=== PATIENT | male | born 1935 | race Caucasian/White ===

== ENCOUNTER 2016-09-30 11:07 | Outpatient (CLI) | payer MEDICARE, BC | END 2016-09-30 11:08 | disposition home or self-care (01) | DX: Z79.01 Long term (current) use of anticoagulants (principal) ==

== ENCOUNTER 2016-10-17 10:54 | Outpatient (CLI) | payer MEDICARE, BC | END 2016-10-17 10:55 | disposition home or self-care (01) | DX: Z79.01 Long term (current) use of anticoagulants (principal) ==

== ENCOUNTER 2016-11-12 11:03 | Outpatient (CLI) | payer MEDICARE, BC | END 2016-11-12 11:04 | disposition home or self-care (01) | DX: Z79.01 Long term (current) use of anticoagulants (principal) ==

== ENCOUNTER 2016-12-02 10:48 | Outpatient (CLI) | payer MEDICARE, BC | END 2016-12-02 10:49 | disposition home or self-care (01) | DX: Z79.01 Long term (current) use of anticoagulants (principal) ==

== ENCOUNTER 2016-12-31 12:39 | Outpatient (CLI) | payer MEDICARE, BC | END 2016-12-31 12:40 | disposition home or self-care (01) | DX: Z79.01 Long term (current) use of anticoagulants (principal) ==

== ENCOUNTER 2017-01-28 09:38 | Outpatient (CLI) | payer MEDICARE, BC | END 2017-01-28 09:39 | disposition home or self-care (01) | DX: Z79.01 Long term (current) use of anticoagulants (principal) ==

== ENCOUNTER 2017-02-05 08:00 | Outpatient (CLI) | payer MEDICARE, BC | END 2017-02-05 08:01 | disposition home or self-care (01) | DX: Z79.01 Long term (current) use of anticoagulants (principal) ==

== ENCOUNTER 2017-02-11 08:49 | Outpatient (CLI) | payer MEDICARE, BC | END 2017-02-11 08:50 | disposition home or self-care (01) | DX: E78.5 Hyperlipidemia, unspecified (principal); E55.9 Vitamin D deficiency, unspecified; Z12.5 Encounter for screening for malignant neoplasm of prostate; Z51.81 Encounter for therapeutic drug level monitoring; Z85.46 Personal history of malignant neoplasm of prostate | CPT/HCPCS: 36415; 80053; 80061; 82306; 85025; G0103 ==

== ENCOUNTER 2017-03-09 13:10 | Outpatient (CLI) | payer MEDICARE, BC | END 2017-03-09 13:11 | disposition home or self-care (01) | LOC: LAB.F 13:10 | PROVIDERS: ATTEND Physician Assistant Medical | DX: Z79.01 Long term (current) use of anticoagulants (principal) | CPT/HCPCS: 85610 ==

== ENCOUNTER 2017-04-03 15:11 | Outpatient (CLI) | payer MEDICARE, BC | END 2017-04-03 15:12 | disposition home or self-care (01) | LOC: LAB.F 15:11 | PROVIDERS: ATTEND Physician Assistant Medical | DX: Z79.01 Long term (current) use of anticoagulants (principal) | CPT/HCPCS: 85610 ==

== ENCOUNTER 2017-05-01 11:26 | Outpatient (CLI) | payer MEDICARE, BC | END 2017-05-01 11:27 | disposition home or self-care (01) | LOC: LAB.F 11:26 | PROVIDERS: ATTEND Physician Assistant Medical | DX: Z79.01 Long term (current) use of anticoagulants (principal) | CPT/HCPCS: 85610 ==

== ENCOUNTER 2017-05-29 10:19 | Outpatient (CLI) | payer MEDICARE, BC | END 2017-05-29 10:20 | disposition home or self-care (01) | LOC: LAB.F 10:19 | PROVIDERS: ATTEND Physician Assistant Medical | DX: Z79.01 Long term (current) use of anticoagulants (principal) | CPT/HCPCS: 85610 ==

== ENCOUNTER 2017-06-25 14:29 | Outpatient (CLI) | payer MEDICARE, BC | END 2017-06-25 14:30 | disposition home or self-care (01) | LOC: LAB.F 14:29 | PROVIDERS: ATTEND Physician Assistant Medical | DX: Z79.01 Long term (current) use of anticoagulants (principal) | CPT/HCPCS: 85610 ==

== ENCOUNTER 2017-07-27 13:47 | Outpatient (CLI) | payer MEDICARE, BC | END 2017-07-27 13:48 | disposition home or self-care (01) | LOC: LAB.F 13:47 | PROVIDERS: ATTEND Physician Assistant Medical | DX: Z79.01 Long term (current) use of anticoagulants (principal) | CPT/HCPCS: 85610 ==

== ENCOUNTER 2017-08-21 14:25 | Outpatient (CLI) | payer MEDICARE, BC | END 2017-08-21 14:26 | disposition home or self-care (01) | LOC: LAB.F 14:25 | PROVIDERS: ATTEND Physician Assistant Medical | DX: Z79.01 Long term (current) use of anticoagulants (principal) | CPT/HCPCS: 85610 ==

== ENCOUNTER 2017-08-27 19:50 | Outpatient (CLI) | payer MEDICARE, BC ==
--- NOTE | 2017-08-27 20:59 | Ultrasound Preliminary Report ---
Exam: US DUPLEX EXT VEINS LEFT IMPRESSION: 1. No evidence of acute deep venous thrombosis. 2. 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 3. There are thrombosed superficial veins within the calf. [facility] SITE ID: [id number]
--- NOTE | 2017-08-27 21:02 | Ultrasound Report ---
EXAM: LEFT LOWER EXTREMITY VENOUS ULTRASOUND EXAM DATE: 08/27/2017 08:07 PM. CLINICAL HISTORY: Lower extremity swelling COMPARISON: None. TECHNIQUE: Real-time sonographic vascular imaging was performed by the television cameraman through the lower extremity utilizing both color-flow and Doppler spectral analysis. Multiple sales development representative static romeo ges were saved for review. FINDINGS: Common Femoral Vein (CFV): Normal. CFV-GSV Junction: Normal. Profunda Femoral Vein (PFV): Normal. Femoral Vein (FV) Prox: Normal. Femoral Vein (FV) Mid: There may be some chronic nonocclusive thrombus within the mid femoral vein. Femoral Vein (FV) Dist: Normal. Popliteal Vein: Normal. Posterior Tibial Veins: Normal. Peroneal Veins: Normal. Contralateral Side CFV: Normal. Other: There are thrombosed superficial subcutaneous veins within the calf. IMPRESSION: 1. No evidence of acute deep venous thrombosis. 2. 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 3. There are thrombosed superficial veins within the calf. [facility] Referring Provider Line: [phone] SITE ID: [id number]
== END 2017-08-27 19:51 | disposition home or self-care (01) ==
LOC: DI 19:50
PROVIDERS: ATTEND Family Medicine
DX: I82.812 Embolism and thrombosis of superficial veins of left lower extremity (principal)

== ENCOUNTER 2017-09-03 11:21 | Outpatient (CLI) | payer MEDICARE, BC | END 2017-09-03 11:22 | disposition home or self-care (01) | LOC: LAB.F 11:21 | PROVIDERS: ATTEND Physician Assistant Medical | DX: Z79.01 Long term (current) use of anticoagulants (principal) | CPT/HCPCS: 85610 ==

== ENCOUNTER 2017-09-17 08:00 | Outpatient (CLI) | payer MEDICARE, BC | END 2017-09-17 08:01 | disposition home or self-care (01) | LOC: LAB.F 08:00 | PROVIDERS: ATTEND Physician Assistant Medical | DX: Z79.01 Long term (current) use of anticoagulants (principal) | CPT/HCPCS: 85610 ==

== ENCOUNTER 2017-10-01 09:07 | Outpatient (CLI) | payer MEDICARE, BC | END 2017-10-01 09:08 | disposition home or self-care (01) | LOC: LAB.F 09:07 | PROVIDERS: ATTEND Physician Assistant Medical | DX: Z79.01 Long term (current) use of anticoagulants (principal); I82.90 Acute embolism and thrombosis of unspecified vein | CPT/HCPCS: 85610 ==

== ENCOUNTER 2017-10-15 08:42 | Outpatient (CLI) | payer MEDICARE, BC | END 2017-10-15 08:43 | disposition home or self-care (01) | LOC: LAB.F 08:42 | PROVIDERS: ATTEND Physician Assistant Medical | DX: Z53.9 Procedure and treatment not carried out, unspecified reason (principal) ==

== ENCOUNTER 2017-10-15 08:45 | Outpatient (CLI) | payer MEDICARE, BC | END 2017-10-15 08:46 | disposition home or self-care (01) | LOC: LAB.F 08:45 | PROVIDERS: ATTEND Physician Assistant Medical | DX: Z79.01 Long term (current) use of anticoagulants (principal); I82.90 Acute embolism and thrombosis of unspecified vein | CPT/HCPCS: 85610 ==

== ENCOUNTER 2017-11-12 13:29 | Outpatient (CLI) | payer MEDICARE, BC | END 2017-11-12 13:30 | disposition home or self-care (01) | LOC: LAB.F 13:29 | PROVIDERS: ATTEND Physician Assistant Medical | DX: I82.90 Acute embolism and thrombosis of unspecified vein (principal); Z79.01 Long term (current) use of anticoagulants | CPT/HCPCS: 85610 ==

== ENCOUNTER 2017-12-10 11:17 | Outpatient (CLI) | payer MEDICARE, BC | END 2017-12-10 11:18 | disposition home or self-care (01) | LOC: LAB.F 11:17 | PROVIDERS: ATTEND Physician Assistant Medical | DX: Z79.01 Long term (current) use of anticoagulants (principal); I82.90 Acute embolism and thrombosis of unspecified vein | CPT/HCPCS: 85610 ==

== ENCOUNTER 2017-12-17 10:23 | Outpatient (CLI) | payer MEDICARE, BC | END 2017-12-17 10:24 | disposition home or self-care (01) | LOC: LAB.F 10:23 | PROVIDERS: ATTEND Physician Assistant Medical | DX: Z79.01 Long term (current) use of anticoagulants (principal); I82.90 Acute embolism and thrombosis of unspecified vein | CPT/HCPCS: 85610 ==

== ENCOUNTER 2017-12-25 09:29 | Outpatient (CLI) | payer MEDICARE, BC | END 2017-12-25 09:30 | disposition home or self-care (01) | LOC: LAB.F 09:29 | PROVIDERS: ATTEND Physician Assistant Medical | DX: Z79.01 Long term (current) use of anticoagulants (principal); I82.90 Acute embolism and thrombosis of unspecified vein | CPT/HCPCS: 85610 ==

== ENCOUNTER 2018-01-01 08:59 | Outpatient (CLI) | payer MEDICARE, BC | END 2018-01-01 09:00 | disposition home or self-care (01) | LOC: LAB.F 08:59 | PROVIDERS: ATTEND Physician Assistant Medical | DX: Z79.01 Long term (current) use of anticoagulants (principal); I82.90 Acute embolism and thrombosis of unspecified vein | CPT/HCPCS: 85610 ==

== ENCOUNTER 2018-01-15 09:33 | Outpatient (CLI) | payer MEDICARE, BC | END 2018-01-15 09:34 | disposition home or self-care (01) | LOC: LAB.F 09:33 | PROVIDERS: ATTEND Physician Assistant Medical | DX: Z79.01 Long term (current) use of anticoagulants (principal); I82.90 Acute embolism and thrombosis of unspecified vein | CPT/HCPCS: 85610 ==

== ENCOUNTER 2018-02-04 10:41 | Outpatient (CLI) | payer MEDICARE, BC ==
[2018-02-04 17:51] LABS: BASOPHILS % (AUTO) 0.4 %; EOSINOPHILS # (AUTO) 0.1 10^3/uL (0.0-0.7); EOSINOPHILS % (AUTO) 1.1 %; HGB - HEMOGLOBIN 14.5 g/dL (14.0-18.0); LYMPHOCYTES # (AUTO) 1.1 10^3/uL (1.5-3.5); LYMPHOCYTES % (AUTO) 22.3 %; MEAN CORPUSCULAR HEMOGLOBIN 31.3 pg (27.0-31.0); MEAN CORPUSCULAR HGB CONC 32.8 g/dL (32.0-36.0); MEAN CORPUSCULAR VOLUME 95.3 fL (80.0-94.0); MEAN PLATELET VOLUME 9.5 fL (7.4-11.4); MONOCYTES # (AUTO) 0.3 10^3/uL (0.0-1.0); MONOCYTES % (AUTO) 6.8 %; NEUTROPHILS # (AUTO) 3.5 10^3/uL (1.5-6.6); NEUTROPHILS % (AUTO) 69.4 %; PLT - PLATELET COUNT 227 10^3/uL (130-450); RED BLOOD COUNT 4.63 10^6/uL (4.70-6.10); RED CELL DISTRIBUTION WIDTH 14.4 % (12.0-15.0); WHITE BLOOD COUNT 5.1 x10^3/uL (4.8-10.8)
[2018-02-04 18:27] LABS: ALBUMIN 3.9 g/dL (3.2-5.5); ALBUMIN/GLOBULIN RATIO 1.4 (1.0-2.2); ALKALINE PHOSPHATASE 56 IU/L (42-121); ALT ALANINE AMINOTRANSFERASE 22 IU/L (10-60); AST ASPARTATE AMINOTRANSFERASE 29 IU/L (10-42); BILIRUBIN,TOTAL 1.2 mg/dL (0.2-1.0); BUN - BLOOD UREA NITROGEN 20 mg/dL (6-20); CALCIUM 8.9 mg/dL (8.5-10.3); CARBON DIOXIDE - CO2 29 mmol/L (21-32); CHLORIDE 104 mmol/L (101-111); CHOL/HDL RATIO 2.2 (<5.0); CHOLESTEROL 144 mg/dL; CREATININE 0.9 mg/dL (0.6-1.2); GFR - MDRD 81 (>89); GLUCOSE 103 mg/dL (70-100); HDL CHOLESTEROL 65 mg/dL; SODIUM 139 mmol/L (135-145); TOTAL PROTEIN 6.7 g/dL (6.7-8.2)
[2018-02-04 18:47] LABS: LDL CHOLESTEROL,DIRECT 59 mg/dL; LDLD/HDL RATIO 0.9 (<3.6)
== END 2018-02-04 10:42 | disposition home or self-care (01) ==
LOC: LAB.F 10:41
PROVIDERS: ATTEND Physician Assistant Medical
DX: I10 Essential (primary) hypertension (principal); E78.5 Hyperlipidemia, unspecified; E55.9 Vitamin D deficiency, unspecified; Z85.46 Personal history of malignant neoplasm of prostate; Z79.01 Long term (current) use of anticoagulants
CPT/HCPCS: 36415; 80053; 80061; 82306; 83721; 84153; 85025

== ENCOUNTER 2018-02-11 11:22 | Outpatient (CLI) | payer MEDICARE, BC | END 2018-02-11 11:23 | disposition home or self-care (01) | LOC: LAB.F 11:22 | PROVIDERS: ATTEND Family Medicine | DX: Z79.01 Long term (current) use of anticoagulants (principal); I82.90 Acute embolism and thrombosis of unspecified vein | CPT/HCPCS: 85610 ==

== ENCOUNTER 2018-03-11 10:06 | Outpatient (CLI) | payer MEDICARE, BC | END 2018-03-11 10:07 | disposition home or self-care (01) | LOC: LAB.F 10:06 | PROVIDERS: ATTEND Physician Assistant Medical | DX: I82.90 Acute embolism and thrombosis of unspecified vein (principal); Z79.01 Long term (current) use of anticoagulants | CPT/HCPCS: 85610 ==

== ENCOUNTER 2018-04-08 09:10 | Outpatient (CLI) | payer MEDICARE, BC | END 2018-04-08 09:11 | disposition home or self-care (01) | LOC: LAB.F 09:10 | PROVIDERS: ATTEND Physician Assistant Medical | DX: Z79.01 Long term (current) use of anticoagulants (principal); I82.90 Acute embolism and thrombosis of unspecified vein | CPT/HCPCS: 85610 ==

== ENCOUNTER 2018-05-06 15:21 | Outpatient (CLI) | payer MEDICARE, BC | END 2018-05-06 15:22 | disposition home or self-care (01) | LOC: LAB.F 15:21 | PROVIDERS: ATTEND Physician Assistant Medical | DX: Z79.01 Long term (current) use of anticoagulants (principal); I82.90 Acute embolism and thrombosis of unspecified vein | CPT/HCPCS: 85610 ==

== ENCOUNTER 2018-05-13 10:00 | Outpatient (CLI) | payer MEDICARE, BC | END 2018-05-13 10:01 | disposition home or self-care (01) | LOC: LAB.F 10:00 | PROVIDERS: ATTEND Physician Assistant Medical | DX: Z79.01 Long term (current) use of anticoagulants (principal); I82.90 Acute embolism and thrombosis of unspecified vein | CPT/HCPCS: 85610 ==

== ENCOUNTER 2018-05-28 11:12 | Outpatient (CLI) | payer MEDICARE, BC | END 2018-05-28 11:13 | disposition home or self-care (01) | LOC: LAB.F 11:12 | PROVIDERS: ATTEND Physician Assistant Medical | DX: Z79.01 Long term (current) use of anticoagulants (principal); I82.90 Acute embolism and thrombosis of unspecified vein | CPT/HCPCS: 85610 ==

== ENCOUNTER 2018-06-28 07:58 | Outpatient (CLI) | payer MEDICARE, BC | END 2018-06-28 07:59 | disposition home or self-care (01) | LOC: LAB.F 07:58 | PROVIDERS: ATTEND Physician Assistant Medical | DX: Z79.01 Long term (current) use of anticoagulants (principal); I82.90 Acute embolism and thrombosis of unspecified vein | CPT/HCPCS: 85610 ==

== ENCOUNTER 2018-07-05 08:00 | Outpatient (CLI) | payer MEDICARE, BC | END 2018-07-05 08:01 | disposition home or self-care (01) | LOC: LAB.F 08:00 | PROVIDERS: ATTEND Physician Assistant Medical | DX: Z79.01 Long term (current) use of anticoagulants (principal); I82.90 Acute embolism and thrombosis of unspecified vein | CPT/HCPCS: 85610 ==

== ENCOUNTER 2018-07-22 09:15 | Outpatient (CLI) | payer MEDICARE, BC | END 2018-07-22 09:16 | disposition home or self-care (01) | LOC: LAB.F 09:15 | PROVIDERS: ATTEND Physician Assistant Medical | DX: Z79.01 Long term (current) use of anticoagulants (principal); I82.90 Acute embolism and thrombosis of unspecified vein | CPT/HCPCS: 85610 ==

== ENCOUNTER 2018-08-23 08:57 | Outpatient (CLI) | payer MEDICARE, BC | END 2018-08-23 08:58 | disposition home or self-care (01) | LOC: LAB.F 08:57 | PROVIDERS: ATTEND Physician Assistant Medical | DX: Z79.01 Long term (current) use of anticoagulants (principal); I82.90 Acute embolism and thrombosis of unspecified vein | CPT/HCPCS: 85610 ==

== ENCOUNTER 2018-09-22 12:51 | Outpatient (CLI) | payer MEDICARE, BC | END 2018-09-22 12:52 | disposition home or self-care (01) | LOC: LAB.F 12:51 | PROVIDERS: ATTEND Registered Nurse | DX: Z79.01 Long term (current) use of anticoagulants (principal) | CPT/HCPCS: 85610 ==

== ENCOUNTER 2018-10-21 10:02 | Outpatient (CLI) | payer MEDICARE, BC | END 2018-10-21 10:03 | disposition home or self-care (01) | LOC: LAB.F 10:02 | PROVIDERS: ATTEND Registered Nurse | DX: Z79.01 Long term (current) use of anticoagulants (principal) | CPT/HCPCS: 85610 ==

== ENCOUNTER 2018-11-18 10:09 | Outpatient (CLI) | payer MEDICARE, BC | END 2018-11-18 10:10 | disposition home or self-care (01) | LOC: LAB.F 10:09 | PROVIDERS: ATTEND Registered Nurse | DX: Z79.01 Long term (current) use of anticoagulants (principal) | CPT/HCPCS: 85610 ==

== ENCOUNTER 2018-12-07 09:53 | Outpatient (CLI) | payer MEDICARE, BC ==
[2018-12-07 17:45] LABS: BASOPHILS % (AUTO) 0.4 %; EOSINOPHILS # (AUTO) 0.1 10^3/uL (0.0-0.7); EOSINOPHILS % (AUTO) 1.1 %; HGB - HEMOGLOBIN 14.9 g/dL (14.0-18.0); LYMPHOCYTES # (AUTO) 1.3 10^3/uL (1.5-3.5); LYMPHOCYTES % (AUTO) 22.4 %; MEAN CORPUSCULAR HEMOGLOBIN 31.6 pg (27.0-31.0); MEAN CORPUSCULAR HGB CONC 32.8 g/dL (32.0-36.0); MEAN CORPUSCULAR VOLUME 96.4 fL (80.0-94.0); MEAN PLATELET VOLUME 8.8 fL (7.4-11.4); MONOCYTES # (AUTO) 0.4 10^3/uL (0.0-1.0); MONOCYTES % (AUTO) 7.5 %; NEUTROPHILS % (AUTO) 68.6 %; PLT - PLATELET COUNT 219 10^3/uL (130-450); RED BLOOD COUNT 4.71 10^6/uL (4.70-6.10); RED CELL DISTRIBUTION WIDTH 14.1 % (12.0-15.0); WHITE BLOOD COUNT 5.9 x10^3/uL (4.8-10.8)
[2018-12-07 18:16] LABS: ALBUMIN/GLOBULIN RATIO 1.5 (1.0-2.2); ALKALINE PHOSPHATASE 51 IU/L (42-121); ALT ALANINE AMINOTRANSFERASE 23 IU/L (10-60); AST ASPARTATE AMINOTRANSFERASE 31 IU/L (10-42); BILIRUBIN,TOTAL 1.4 mg/dL (0.2-1.0); BUN - BLOOD UREA NITROGEN 24 mg/dL (6-20); CALCIUM 9.2 mg/dL (8.5-10.3); CARBON DIOXIDE - CO2 30 mmol/L (21-32); CHLORIDE 102 mmol/L (101-111); CHOLESTEROL 138 mg/dL; CREATININE 0.8 mg/dL (0.6-1.2); GFR - MDRD 93 (>89); GLUCOSE 109 mg/dL (70-100); HDL CHOLESTEROL 70 mg/dL; LDL CHOLESTEROL,CALCULATED 57 mg/dL; LDL/HDL RATIO 0.8 (<3.6); SODIUM 139 mmol/L (135-145); TOTAL PROTEIN 6.7 g/dL (6.7-8.2); VLDL CHOLESTEROL 11 mg/dL
== END 2018-12-07 09:54 | disposition home or self-care (01) ==
LOC: LAB.F 09:53
PROVIDERS: ATTEND Physician Assistant Medical
DX: I10 Essential (primary) hypertension (principal); E78.5 Hyperlipidemia, unspecified
CPT/HCPCS: 36415; 80053; 80061; 83721; 85025

== ENCOUNTER 2018-12-14 12:54 | Outpatient (CLI) | payer MEDICARE, BC | END 2018-12-14 12:55 | disposition home or self-care (01) | LOC: LAB.F 12:54 | PROVIDERS: ATTEND Registered Nurse | DX: Z79.01 Long term (current) use of anticoagulants (principal) | CPT/HCPCS: 85610 ==

== ENCOUNTER 2018-12-22 14:12 | Outpatient (CLI) | payer MEDICARE, BC | END 2018-12-22 14:13 | disposition home or self-care (01) | LOC: LAB.F 14:12 | PROVIDERS: ATTEND Registered Nurse | DX: Z79.01 Long term (current) use of anticoagulants (principal) | CPT/HCPCS: 85610 ==

== ENCOUNTER 2019-01-27 11:17 | Outpatient (CLI) | payer MEDICARE, BC | END 2019-01-27 11:18 | disposition home or self-care (01) | LOC: LAB.F 11:17 | PROVIDERS: ATTEND Registered Nurse | DX: Z79.01 Long term (current) use of anticoagulants (principal) | CPT/HCPCS: 85610 ==

== ENCOUNTER 2019-02-18 08:49 | Outpatient (CLI) | payer MEDICARE, BC | END 2019-02-18 08:50 | disposition home or self-care (01) | LOC: LAB.F 08:49 | PROVIDERS: ATTEND Registered Nurse | DX: Z79.01 Long term (current) use of anticoagulants (principal) | CPT/HCPCS: 85610 ==

== ENCOUNTER 2019-03-17 08:00 | Outpatient (CLI) | payer MEDICARE, BC | END 2019-03-17 23:59 | disposition home or self-care (01) | LOC: LAB.F 08:00 | PROVIDERS: ATTEND Registered Nurse | DX: Z79.01 Long term (current) use of anticoagulants (principal) | CPT/HCPCS: 85610 ==

== ENCOUNTER 2019-03-29 08:12 | Outpatient (CLI) | payer MEDICARE, BC ==
--- NOTE | 2019-03-30 12:10 | XRAY Report ---
Reason: M25.561 KNEE JOINT PAIN Procedure Date: 03/29/2019 Accession Number: [id number] / [id number] Procedure: XRS - Knee 3 View RT CPT Code: FULL RESULT: EXAM: RIGHT KNEE RADIOGRAPHY EXAM DATE: 03/29/2019 08:58 AM. CLINICAL HISTORY: M25. 561 KNEE JOINT PAIN. Right knee pain for 4 months. No known injury. COMPARISON: None. TECHNIQUE: 3 views. FINDINGS: Bones: Normal. No fractures or bone lesions. Joints: Mild patellofemoral joint space narrowing. Mild superior patellar spurring. No effusion. No subluxations. Probable mild spurring of medial tibial spine. Soft Tissues: Superior patellar enthesophyte at quadriceps insertion. Atherosclerotic arterial calcifications. IMPRESSION: Mild right knee degenerative changes. [facility]
== END 2019-03-29 08:13 | disposition home or self-care (01) ==
LOC: DI.S 08:12
PROVIDERS: ATTEND Internal Medicine
DX: M17.11 Unilateral primary osteoarthritis, right knee (principal)

== ENCOUNTER 2019-04-14 09:01 | Outpatient (CLI) | payer MEDICARE, BC | END 2019-04-14 09:02 | disposition home or self-care (01) | LOC: LAB.S 09:01 | PROVIDERS: ATTEND Registered Nurse | DX: Z79.01 Long term (current) use of anticoagulants (principal) | CPT/HCPCS: 85610 ==

== ENCOUNTER 2019-05-05 09:55 | Outpatient (CLI) | payer MEDICARE, BC | END 2019-05-05 09:56 | disposition home or self-care (01) | LOC: LAB.S 09:55 | PROVIDERS: ATTEND Registered Nurse | DX: Z79.01 Long term (current) use of anticoagulants (principal) | CPT/HCPCS: 85610 ==

== ENCOUNTER 2019-06-02 13:33 | Outpatient (CLI) | payer MEDICARE, BC | END 2019-06-02 13:34 | disposition home or self-care (01) | LOC: LAB.S 13:33 | PROVIDERS: ATTEND Registered Nurse | DX: Z79.01 Long term (current) use of anticoagulants (principal) | CPT/HCPCS: 85610 ==

== ENCOUNTER 2019-06-30 09:10 | Outpatient (CLI) | payer MEDICARE, BC | END 2019-06-30 09:11 | disposition home or self-care (01) | LOC: LAB.S 09:10 | PROVIDERS: ATTEND Registered Nurse | DX: Z79.01 Long term (current) use of anticoagulants (principal) | CPT/HCPCS: 85610 ==

== ENCOUNTER 2019-07-07 11:16 | Outpatient (CLI) | payer MEDICARE, BC | END 2019-07-07 11:17 | disposition home or self-care (01) | LOC: LAB.S 11:16 | PROVIDERS: ATTEND Registered Nurse | DX: Z79.01 Long term (current) use of anticoagulants (principal) | CPT/HCPCS: 85610 ==

== ENCOUNTER 2019-07-14 09:12 | Outpatient (CLI) | payer MEDICARE, BC | END 2019-07-14 09:13 | disposition home or self-care (01) | LOC: LAB.S 09:12 | PROVIDERS: ATTEND Registered Nurse | DX: Z79.01 Long term (current) use of anticoagulants (principal) | CPT/HCPCS: 85610 ==

== ENCOUNTER 2019-07-21 10:30 | Outpatient (CLI) | payer MEDICARE, BC | END 2019-07-21 23:59 | disposition home or self-care (01) | LOC: LAB.S 10:30 | PROVIDERS: ATTEND Registered Nurse | DX: Z79.01 Long term (current) use of anticoagulants (principal) | CPT/HCPCS: 85610 ==

== ENCOUNTER 2019-08-04 09:33 | Outpatient (CLI) | payer MEDICARE, BC | END 2019-08-04 09:34 | disposition home or self-care (01) | LOC: LAB.S 09:33 | PROVIDERS: ATTEND Registered Nurse | DX: Z79.01 Long term (current) use of anticoagulants (principal) | CPT/HCPCS: 85610 ==

== ENCOUNTER 2019-09-01 09:57 | Outpatient (CLI) | payer MEDICARE, BC | END 2019-09-01 09:58 | disposition home or self-care (01) | LOC: LAB.S 09:57 | PROVIDERS: ATTEND Registered Nurse | DX: Z79.01 Long term (current) use of anticoagulants (principal) | CPT/HCPCS: 85610 ==

== ENCOUNTER 2019-09-27 09:58 | Outpatient (CLI) | payer MEDICARE, BC | END 2019-09-27 09:59 | disposition home or self-care (01) | LOC: LAB.S 09:58 | PROVIDERS: ATTEND Registered Nurse | DX: Z79.01 Long term (current) use of anticoagulants (principal) | CPT/HCPCS: 85610 ==

== ENCOUNTER 2019-10-05 12:55 | Outpatient (CLI) | payer MEDICARE, BC | END 2019-10-05 12:56 | disposition home or self-care (01) | LOC: LAB.S 12:55 | PROVIDERS: ATTEND Registered Nurse | DX: Z79.01 Long term (current) use of anticoagulants (principal); I48.0 Paroxysmal atrial fibrillation | CPT/HCPCS: 85610 ==

== ENCOUNTER 2019-10-12 10:28 | Outpatient (CLI) | payer MEDICARE, BC | END 2019-10-12 10:29 | disposition home or self-care (01) | LOC: LAB.S 10:28 | PROVIDERS: ATTEND Registered Nurse | DX: Z79.01 Long term (current) use of anticoagulants (principal) | CPT/HCPCS: 85610 ==

== ENCOUNTER 2019-10-19 11:06 | Outpatient (CLI) | payer MEDICARE, BC | END 2019-10-19 11:07 | disposition home or self-care (01) | LOC: LAB.S 11:06 | PROVIDERS: ATTEND Registered Nurse | DX: Z79.01 Long term (current) use of anticoagulants (principal) | CPT/HCPCS: 85610 ==

== ENCOUNTER 2019-10-26 10:48 | Outpatient (CLI) | payer MEDICARE, BC | END 2019-10-26 10:49 | disposition home or self-care (01) | LOC: LAB.S 10:48 | PROVIDERS: ATTEND Registered Nurse | DX: Z51.81 Encounter for therapeutic drug level monitoring (principal); Z79.01 Long term (current) use of anticoagulants | CPT/HCPCS: 85610 ==

== ENCOUNTER 2019-11-09 11:05 | Outpatient (CLI) | payer MEDICARE, BC | END 2019-11-09 11:06 | disposition home or self-care (01) | LOC: LAB.S 11:05 | PROVIDERS: ATTEND Registered Nurse | DX: Z79.01 Long term (current) use of anticoagulants (principal) | CPT/HCPCS: 85610 ==

== ENCOUNTER 2019-12-08 10:22 | Outpatient (CLI) | payer MEDICARE, BC | END 2019-12-08 10:23 | disposition home or self-care (01) | LOC: LAB.S 10:22 | PROVIDERS: ATTEND Registered Nurse | DX: Z79.01 Long term (current) use of anticoagulants (principal) | CPT/HCPCS: 85610 ==

== ENCOUNTER 2020-01-05 14:12 | Outpatient (CLI) | payer MEDICARE, BC | END 2020-01-05 14:13 | disposition home or self-care (01) | LOC: LAB 14:12 | PROVIDERS: ATTEND Registered Nurse | DX: Z79.01 Long term (current) use of anticoagulants (principal) | CPT/HCPCS: 85610 ==

== ENCOUNTER 2020-02-02 10:14 | Outpatient (CLI) | payer MEDICARE, BC | END 2020-02-02 10:15 | disposition home or self-care (01) | LOC: LAB 10:14 | PROVIDERS: ATTEND Registered Nurse | DX: Z79.01 Long term (current) use of anticoagulants (principal) | CPT/HCPCS: 85610 ==

== ENCOUNTER 2020-03-01 08:55 | Outpatient (CLI) | payer MEDICARE, BC | END 2020-03-01 08:56 | disposition home or self-care (01) | LOC: LAB 08:55 | PROVIDERS: ATTEND Registered Nurse | DX: Z79.01 Long term (current) use of anticoagulants (principal) | CPT/HCPCS: 85610 ==

== ENCOUNTER 2020-03-14 09:49 | Outpatient (CLI) | payer MEDICARE, BC ==
[2020-03-14 15:04] LABS: BASOPHILS % (AUTO) 0.4 %; EOSINOPHILS # (AUTO) 0.1 10^3/uL (0.0-0.7); EOSINOPHILS % (AUTO) 0.9 %; HGB - HEMOGLOBIN 15.2 g/dL (14.0-18.0); LYMPHOCYTES # (AUTO) 1.2 10^3/uL (1.5-3.5); LYMPHOCYTES % (AUTO) 21.8 %; MEAN CORPUSCULAR HEMOGLOBIN 32.7 pg (27.0-31.0); MEAN CORPUSCULAR HGB CONC 33.1 g/dL (32.0-36.0); MEAN CORPUSCULAR VOLUME 98.7 fL (80.0-94.0); MEAN PLATELET VOLUME 11.1 fL (7.4-11.4); MONOCYTES # (AUTO) 0.4 10^3/uL (0.0-1.0); MONOCYTES % (AUTO) 7.6 %; NEUTROPHILS # (AUTO) 3.8 10^3/uL (1.5-6.6); NEUTROPHILS % (AUTO) 69.1 %; PLT - PLATELET COUNT 216 10^3/uL (130-450); RED BLOOD COUNT 4.65 10^6/uL (4.70-6.10); RED CELL DISTRIBUTION WIDTH 13.6 % (12.0-15.0); WHITE BLOOD COUNT 5.6 x10^3/uL (4.8-10.8)
[2020-03-14 15:21] LABS: ALBUMIN 4.1 g/dL (3.2-5.5); ALBUMIN/GLOBULIN RATIO 1.5 (1.0-2.2); ALKALINE PHOSPHATASE 54 IU/L (42-121); ALT ALANINE AMINOTRANSFERASE 21 IU/L (10-60); AST ASPARTATE AMINOTRANSFERASE 29 IU/L (10-42); BILIRUBIN,TOTAL 1.4 mg/dL (0.2-1.0); BUN - BLOOD UREA NITROGEN 21 mg/dL (6-20); CALCIUM 9.2 mg/dL (8.5-10.3); CARBON DIOXIDE - CO2 30 mmol/L (21-32); CHLORIDE 103 mmol/L (101-111); CHOL/HDL RATIO 2.2 (<5.0); CHOLESTEROL 151 mg/dL; CREATININE 0.8 mg/dL (0.6-1.2); GLUCOSE 99 mg/dL (70-100); HDL CHOLESTEROL 70 mg/dL; SODIUM 140 mmol/L (135-145); TOTAL PROTEIN 6.8 g/dL (6.7-8.2)
== END 2020-03-14 09:50 | disposition home or self-care (01) ==
LOC: LAB.S 09:49
PROVIDERS: ATTEND Physician Assistant
DX: E78.5 Hyperlipidemia, unspecified (principal); I10 Essential (primary) hypertension; Z79.899 Other long term (current) drug therapy
CPT/HCPCS: 36415; 80053; 80061; 83721; 84443; 85025

== ENCOUNTER 2020-03-29 09:18 | Outpatient (CLI) | payer MEDICARE, BC ==
--- NOTE | 2020-03-29 10:10 | XRAY Report ---
PROCEDURE: Finger(s) RT INDICATIONS: FINGER JOINT STIFFNESS, R HAND, MIDDLE DIGIT TECHNIQUE: AP hand, 3 views of the right middle finger(s) acquired. COMPARISON: None. FINDINGS: Bones: No acute fractures or dislocations. Normal bone mineralization. Degenerative changes noted in the interphalangeal joints of the right hand most pronounced in the distal interphalangeal joints. A few subchondral cystic changes are noted at the head of the middle phalanges of the second, third, a nd fourth fingers. No periarticular osteopenia. No suspicious bony lesions. Soft tissues: No suspicious soft tissue calcifications. IMPRESSION: Right third finger without acute fracture or malalignment. Multilevel degenerative changes of the rig ht hand and right middle finger most pronounced in the distal interphalangeal joints. Reviewed by: Harshil Rosa MD on 03/29/2020 10:09 AM PDT Approved by: Harshil Rosa MD on 03/29/2020 10:09 AM PDT Station ID: [id number]
== END 2020-03-29 09:19 | disposition home or self-care (01) ==
LOC: DI.S 09:18
PROVIDERS: ATTEND Physician Assistant
DX: M19.041 Primary osteoarthritis, right hand (principal); Z79.01 Long term (current) use of anticoagulants
CPT/HCPCS: 73140; 85610

== ENCOUNTER 2020-04-26 08:32 | Outpatient (CLI) | payer MEDICARE, BC | END 2020-04-26 08:33 | disposition home or self-care (01) | LOC: LAB.S 08:32 | PROVIDERS: ATTEND Registered Nurse | DX: Z79.01 Long term (current) use of anticoagulants (principal) | CPT/HCPCS: 85610 ==

== ENCOUNTER 2020-05-10 09:07 | Outpatient (CLI) | payer MEDICARE, BC | END 2020-05-10 09:08 | disposition home or self-care (01) | LOC: LAB.S 09:07 | PROVIDERS: ATTEND Registered Nurse | DX: Z79.01 Long term (current) use of anticoagulants (principal) | CPT/HCPCS: 85610 ==

== ENCOUNTER 2020-05-24 09:33 | Outpatient (CLI) | payer MEDICARE, BC | END 2020-05-24 09:34 | disposition home or self-care (01) | LOC: LAB.S 09:33 | PROVIDERS: ATTEND Registered Nurse | DX: Z79.01 Long term (current) use of anticoagulants (principal) | CPT/HCPCS: 85610 ==

== ENCOUNTER 2020-06-21 09:29 | Outpatient (CLI) | payer MEDICARE, BC | END 2020-06-21 09:30 | disposition home or self-care (01) | LOC: LAB.S 09:29 | PROVIDERS: ATTEND Registered Nurse | DX: Z79.01 Long term (current) use of anticoagulants (principal) | CPT/HCPCS: 85610 ==

== ENCOUNTER 2020-07-17 13:42 | Outpatient (CLI) | payer MEDICARE, BC | END 2020-07-17 13:43 | disposition home or self-care (01) | LOC: LAB.S 13:42 | PROVIDERS: ATTEND Physician Assistant | DX: S30.92XA Unspecified superficial injury of abdominal wall, initial encounter (principal) | CPT/HCPCS: 36415; 81599; 86780 ==

== ENCOUNTER 2020-07-19 13:33 | Outpatient (CLI) | payer MEDICARE, BC | END 2020-07-19 13:34 | disposition home or self-care (01) | LOC: LAB.S 13:33 | PROVIDERS: ATTEND Registered Nurse | DX: Z79.01 Long term (current) use of anticoagulants (principal) | CPT/HCPCS: 85610 ==

== ENCOUNTER 2020-07-26 10:45 | Outpatient (CLI) | payer MEDICARE, BC | END 2020-07-26 10:46 | disposition home or self-care (01) | LOC: LAB.S 10:45 | PROVIDERS: ATTEND Registered Nurse | DX: Z79.01 Long term (current) use of anticoagulants (principal) | CPT/HCPCS: 85610 ==

== ENCOUNTER 2020-08-16 13:26 | Outpatient (CLI) | payer MEDICARE, BC | END 2020-08-16 13:27 | disposition home or self-care (01) | LOC: LAB.S 13:26 | PROVIDERS: ATTEND Registered Nurse | DX: Z79.01 Long term (current) use of anticoagulants (principal) | CPT/HCPCS: 85610 ==

== ENCOUNTER 2020-09-13 09:50 | Outpatient (CLI) | payer MEDICARE, BC | END 2020-09-13 09:51 | disposition home or self-care (01) | LOC: LAB.S 09:50 | PROVIDERS: ATTEND Registered Nurse | DX: Z79.01 Long term (current) use of anticoagulants (principal) | CPT/HCPCS: 85610 ==

== ENCOUNTER 2020-09-27 09:06 | Outpatient (CLI) | payer MEDICARE, BC | END 2020-09-27 09:07 | disposition home or self-care (01) | LOC: LAB.S 09:06 | PROVIDERS: ATTEND Registered Nurse | DX: Z79.01 Long term (current) use of anticoagulants (principal) | CPT/HCPCS: 85610 ==

== ENCOUNTER 2020-10-18 08:00 | Outpatient (CLI) | payer MEDICARE, BC | END 2020-10-18 23:59 | disposition home or self-care (01) | LOC: LAB.N 08:00 | PROVIDERS: ATTEND Physician Assistant | DX: Z79.01 Long term (current) use of anticoagulants (principal) ==

== ENCOUNTER 2020-11-15 09:03 | Outpatient (CLI) | payer MEDICARE, BC | END 2020-11-15 09:04 | disposition home or self-care (01) | LOC: LAB.S 09:03 | PROVIDERS: ATTEND Registered Nurse | DX: Z79.01 Long term (current) use of anticoagulants (principal) | CPT/HCPCS: 85610 ==

== ENCOUNTER 2020-11-23 13:39 | Outpatient (CLI) | payer MEDICARE, BC ==
[2020-11-23 19:51] LABS: BASOPHILS % (AUTO) 0.3 %; EOSINOPHILS % (AUTO) 0.3 %; HCT - HEMATOCRIT 44.6 % (42.0-52.0); HGB - HEMOGLOBIN 14.4 g/dL (14.0-18.0); LYMPHOCYTES # (AUTO) 1.2 10^3/uL (1.5-3.5); LYMPHOCYTES % (AUTO) 18.5 %; MEAN CORPUSCULAR HEMOGLOBIN 31.9 pg (27.0-31.0); MEAN CORPUSCULAR HGB CONC 32.3 g/dL (32.0-36.0); MEAN CORPUSCULAR VOLUME 98.7 fL (80.0-94.0); MEAN PLATELET VOLUME 11.2 fL (7.4-11.4); MONOCYTES # (AUTO) 0.5 10^3/uL (0.0-1.0); NEUTROPHILS # (AUTO) 4.8 10^3/uL (1.5-6.6); NEUTROPHILS % (AUTO) 73.6 %; PLT - PLATELET COUNT 257 10^3/uL (130-450); RED BLOOD COUNT 4.52 10^6/uL (4.70-6.10); RED CELL DISTRIBUTION WIDTH 13.7 % (12.0-15.0); WHITE BLOOD COUNT 6.5 x10^3/uL (4.8-10.8)
[2020-11-23 20:00] LABS: ALBUMIN/GLOBULIN RATIO 1.5 (1.0-2.2); BILIRUBIN,TOTAL 1.4 mg/dL (0.2-1.0); CALCIUM 9.3 mg/dL (8.5-10.3); CREATININE 0.8 mg/dL (0.6-1.2); POTASSIUM 4.3 mmol/L (3.5-5.0); TOTAL PROTEIN 6.7 g/dL (6.7-8.2)
[2020-11-23 20:58] LABS: ESTIMATED AVERAGE GLUCOSE 117 mg/dL (70-100); HEMOGLOBIN A1c% 5.7 % (4.27-6.07)
== END 2020-11-23 13:40 | disposition home or self-care (01) ==
LOC: LAB.S 13:39
PROVIDERS: ATTEND Physician Assistant
DX: L02.221 Furuncle of abdominal wall (principal); L02.224 Furuncle of groin
CPT/HCPCS: 36415; 80053; 83036; 85025

== ENCOUNTER 2020-12-27 10:44 | Outpatient (CLI) | payer MEDICARE, BC | END 2020-12-27 10:45 | disposition home or self-care (01) | LOC: LAB.S 10:44 | PROVIDERS: ATTEND Registered Nurse | DX: Z79.01 Long term (current) use of anticoagulants (principal) | CPT/HCPCS: 85610 ==

== ENCOUNTER 2021-01-10 10:20 | Outpatient (CLI) | payer MEDICARE, BC | END 2021-01-10 10:21 | disposition home or self-care (01) | LOC: LAB.S 10:20 | PROVIDERS: ATTEND Registered Nurse | DX: Z79.01 Long term (current) use of anticoagulants (principal) | CPT/HCPCS: 85610 ==

== ENCOUNTER 2021-01-24 10:09 | Outpatient (CLI) | payer MEDICARE, BC | END 2021-01-24 10:10 | disposition home or self-care (01) | LOC: LAB.S 10:09 | PROVIDERS: ATTEND Registered Nurse | DX: Z79.01 Long term (current) use of anticoagulants (principal) | CPT/HCPCS: 36416; 85610 ==

== ENCOUNTER 2021-02-07 08:50 | Outpatient (CLI) | payer MEDICARE, BC | END 2021-02-07 08:51 | disposition home or self-care (01) | LOC: LAB.S 08:50 | PROVIDERS: ATTEND Registered Nurse | DX: Z79.01 Long term (current) use of anticoagulants (principal) | CPT/HCPCS: 36416; 85610 ==

== ENCOUNTER 2021-02-28 09:22 | Outpatient (CLI) | payer MEDICARE, BC | END 2021-02-28 09:23 | disposition home or self-care (01) | LOC: LAB.S 09:22 | PROVIDERS: ATTEND Registered Nurse | DX: Z79.01 Long term (current) use of anticoagulants (principal) | CPT/HCPCS: 36416; 85610 ==

== ENCOUNTER 2021-03-28 10:35 | Outpatient (CLI) | payer MEDICARE, BC ==
[2021-03-28 14:40] LABS: BASOPHILS % (AUTO) 0.6 %; EOSINOPHILS # (AUTO) 0.1 10^3/uL (0.0-0.7); EOSINOPHILS % (AUTO) 1.1 %; HCT - HEMATOCRIT 42.7 % (42.0-52.0); LYMPHOCYTES # (AUTO) 1.3 10^3/uL (1.5-3.5); MEAN CORPUSCULAR HEMOGLOBIN 32.1 pg (27.0-31.0); MEAN CORPUSCULAR HGB CONC 32.8 g/dL (32.0-36.0); MEAN CORPUSCULAR VOLUME 97.9 fL (80.0-94.0); MEAN PLATELET VOLUME 11.4 fL (7.4-11.4); MONOCYTES # (AUTO) 0.5 10^3/uL (0.0-1.0); MONOCYTES % (AUTO) 9.7 %; NEUTROPHILS # (AUTO) 3.4 10^3/uL (1.5-6.6); NEUTROPHILS % (AUTO) 63.4 %; PLT - PLATELET COUNT 221 10^3/uL (130-450); RED BLOOD COUNT 4.36 10^6/uL (4.70-6.10); RED CELL DISTRIBUTION WIDTH 13.8 % (12.0-15.0); WHITE BLOOD COUNT 5.3 x10^3/uL (4.8-10.8)
[2021-03-28 15:33] LABS: ALBUMIN 3.9 g/dL (3.2-5.5); ALBUMIN/GLOBULIN RATIO 1.8 (1.0-2.2); ALKALINE PHOSPHATASE 61 IU/L (42-121); ALT ALANINE AMINOTRANSFERASE 23 IU/L (10-60); AST ASPARTATE AMINOTRANSFERASE 31 IU/L (10-42); BILIRUBIN,TOTAL 1.4 mg/dL (0.2-1.0); BUN - BLOOD UREA NITROGEN 22 mg/dL (6-20); CALCIUM 8.7 mg/dL (8.5-10.3); CARBON DIOXIDE - CO2 27 mmol/L (21-32); CHLORIDE 103 mmol/L (101-111); CHOL/HDL RATIO 2.1 (<5.0); CHOLESTEROL 133 mg/dL; GFR - MDRD 71 (>89); GLUCOSE 95 mg/dL (70-100); HDL CHOLESTEROL 62 mg/dL; POTASSIUM 4.2 mmol/L (3.5-5.0); SODIUM 138 mmol/L (135-145); TOTAL PROTEIN 6.1 g/dL (6.7-8.2); TRIGLYCERIDES 34 mg/dL
[2021-03-28 20:47] LABS: ESTIMATED AVERAGE GLUCOSE 114 mg/dL (70-100); HEMOGLOBIN A1c% 5.6 % (4.27-6.07)
== END 2021-03-28 10:36 | disposition home or self-care (01) ==
LOC: LAB.S 10:35
PROVIDERS: ATTEND Registered Nurse
DX: Z79.01 Long term (current) use of anticoagulants (principal); Z79.899 Other long term (current) drug therapy; E78.5 Hyperlipidemia, unspecified; I10 Essential (primary) hypertension; Z12.5 Encounter for screening for malignant neoplasm of prostate
CPT/HCPCS: 36415; 80053; 80061; 83036; 85025; 85610; G0103; 83721; 84153

== ENCOUNTER 2021-04-25 10:07 | Outpatient (CLI) | payer MEDICARE, BC | END 2021-04-25 10:08 | disposition home or self-care (01) | LOC: LAB.S 10:07 | PROVIDERS: ATTEND Registered Nurse | DX: Z79.01 Long term (current) use of anticoagulants (principal) | CPT/HCPCS: 36416; 85610 ==

== ENCOUNTER 2021-05-23 11:25 | Outpatient (CLI) | payer MEDICARE, BC | END 2021-05-23 11:26 | disposition home or self-care (01) | LOC: LAB.S 11:25 | PROVIDERS: ATTEND Registered Nurse | DX: Z79.01 Long term (current) use of anticoagulants (principal) | CPT/HCPCS: 36416; 85610 ==

== ENCOUNTER 2021-06-20 09:06 | Outpatient (CLI) | payer MEDICARE, BC | END 2021-06-20 09:07 | disposition home or self-care (01) | LOC: LAB.S 09:06 | PROVIDERS: ATTEND Registered Nurse | DX: Z79.01 Long term (current) use of anticoagulants (principal) | CPT/HCPCS: 36416; 85610 ==

== ENCOUNTER 2021-07-18 09:41 | Outpatient (CLI) | payer MEDICARE, BC | END 2021-07-18 09:42 | disposition home or self-care (01) | LOC: LAB.S 09:41 | PROVIDERS: ATTEND Internal Medicine | DX: Z79.01 Long term (current) use of anticoagulants (principal) | CPT/HCPCS: 36416; 85610 ==

== ENCOUNTER 2021-10-03 10:12 | Outpatient (CLI) | payer MEDICARE, BC | END 2021-10-03 10:13 | disposition home or self-care (01) | LOC: LAB.S 10:12 | PROVIDERS: ATTEND Family Medicine | DX: Z79.01 Long term (current) use of anticoagulants (principal) | CPT/HCPCS: 36416; 85610 ==